=== PATIENT | female | born 1950 | race Two or more races ===

== ENCOUNTER 2025-03-15 11:59 | Inpatient (IN) | payer MEDICARE, OTHER ==
[~2025-03-15] VITALS: Ht 165.1 cm; Wt 68.5 kg
[2025-03-15] MEDS ORDERED: ONDANSETRON HCL/PF 4 MG/2 ML VIAL ONE (12:35)
[2025-03-15] MEDS: IV NS 0.9% 1,000 ML BAG IV ONE ×3 (13:00→16:35)
[2025-03-15] MEDS: ONDANSETRON HCL/PF - ER 4 MG/2 ML VIAL IV ONE (13:01)
[2025-03-15 13:26] LABS: PLATELET COUNT (AUTO) 250 K/uL (150-450); RED BLOOD CELL COUNT(AUTO) 4.39 MIL/uL (4.0-5.2); RED CELL DISTRIBUTION WIDTH 13.5 % (11.5-15.0); WHITE BLOOD COUNT (AUTO) 11.5 K/uL (4.3-11.0)
[2025-03-15 13:34] LABS: CALCIUM, SERUM 8.8 mg/dL (8.5-10.1); CREATININE 0.8 mg/dL (0.6-1.3); SODIUM SERUM 142.0 mmol/L (136-145); UREA NITROGEN, BLOOD 11.0 mg/dL (7-18)
[2025-03-15 13:39] LABS: ASPARTATE AMINOTRANSFERASE 12.0 U/L (15-37); TOTAL PROTEIN, SERUM 7.4 g/dL (6.4-8.2)
[2025-03-15 13:41] LABS: LACTIC ACID 1.7 mmol/L (0.4-2.0)
[2025-03-15] MEDS ORDERED: IV NS 0.9% 250 ML IV ONE (13:44)
[2025-03-15] MEDS ORDERED: IOHEXOL-300 100 ML VIAL IV ONE (13:44)
[2025-03-15] MEDS ORDERED: MINERAL OIL 133 ML (PYXIS) 1 EA ENEMA RC ONE (14:51)
[2025-03-15] MEDS ORDERED: PANTOPRAZOLE 40 MG VIAL ONE (14:51)
[2025-03-15] MEDS ORDERED: KETOROLAC TROMETHAMINE INJ 30 MG/ML VIAL ONE (14:51)
[2025-03-15] MEDS ORDERED: LACTULOSE 10 G/15 ML UDC (PYXIS) PO ONE (15:00)
[2025-03-15] MEDS: PANTOPRAZOLE 40 MG VIAL IV ONE (15:05)
[2025-03-15] MEDS: KETOROLAC TROMETHAMINE 15 MG/ML VIAL IV ONE (15:06)
[2025-03-15] MEDS: MINERAL OIL 133 ML (PYXIS) 1 EA ENEMA RC ONE (15:25)
[2025-03-15] MEDS ORDERED: DOSING PER PHARMACY-CEFEPIME IVPB XX PRN (16:30)
[2025-03-15] MEDS ORDERED: ONDANSETRON HCL/PF 4 MG/2 ML VIAL IVP PRN (16:30)
[2025-03-15] MEDS ORDERED: hydrALAZINE HCL IV 20 MG VIAL IV PRN (16:30)
[2025-03-15] MEDS ORDERED: LORA-258 PO (16:32)
[2025-03-15] MEDS ORDERED: IBUP-23 PO (16:32)
[2025-03-15] MEDS ORDERED: PARO20TA7 PO (16:32)
[2025-03-15] MEDS: PIPERACILLIN /TAZOBACTAM 3.375 G in IV D5W 50 ML IV ONE (16:35)
[2025-03-15] MEDS ORDERED: DIATR MEGLU/DIATRIZOATE SODIUM 120 ML BOTTLE (GASTROGRAPHIN) ONE ×2 (17:26→17:32)
[2025-03-15] MEDS: IV NS 0.9% 1,000 ML IV SCH (17:29)
[2025-03-15] MEDS: DOCUSATE SODIUM LIQ 100 MG/10 ML UDC PO SCH (17:30)
[2025-03-15] MEDS ORDERED: CIPR500T5 PO (19:27)
[2025-03-15] MEDS ORDERED: METR500T PO (19:27)
[2025-03-15] MEDS ORDERED: LORAZEPAM INJ 2 MG/ML VIAL IV PRN (19:30)
[2025-03-15] MEDS: CEFEPIME 2 GM in IV D5W 100 ML IV SCH (19:51)
[2025-03-15 20:00] VITALS: BP 151/65; TEMP 98.1; O2SAT 98
[2025-03-15] MEDS: ACETAMINOPHEN 325 MG TABLET PO PRN (20:04)
[2025-03-15] MEDS: FLUTICASONE PROPIONATE 16 GM BOTTLE NS SCH (20:36)
[2025-03-15] MEDS: HEPARIN SODIUM, PORCINE 5000 UNITS/1 ML VIAL SQ SCH (20:39)
[2025-03-16 06:49] LABS: PLATELET COUNT (AUTO) 194 K/uL (150-450); RED BLOOD CELL COUNT(AUTO) 3.68 MIL/uL (4.0-5.2); RED CELL DISTRIBUTION WIDTH 13.2 % (11.5-15.0); WHITE BLOOD COUNT (AUTO) 8.1 K/uL (4.3-11.0)
[2025-03-16 07:00] VITALS: BP 154/72; TEMP 98.4; O2SAT 95
[2025-03-16 07:53] LABS: ASPARTATE AMINOTRANSFERASE 14.0 U/L (15-37); CALCIUM, SERUM 8.2 mg/dL (8.5-10.1); CREATININE 0.8 mg/dL (0.6-1.3); PHOSPHORUS 3.2 mg/dL (2.5-4.9); SODIUM SERUM 144.0 mmol/L (136-145); TOTAL PROTEIN, SERUM 5.8 g/dL (6.4-8.2); UREA NITROGEN, BLOOD 8.0 mg/dL (7-18)
[2025-03-16] MEDS: POLYETHYLENE GLYCOL 3350 17 GM POWD.PACK PO SCH (08:50)
== END 2025-03-16 11:45 | disposition home health service (06) | DRG 392 ==
LOC: ER 12:11 → MED 16:54
PROVIDERS: ADMIT Internal Medicine; ATTEND Internal Medicine
DX: K57.32 Diverticulitis of large intestine without perforation or abscess without bleeding (principal); K59.00 Constipation, unspecified; K52.9 Noninfective gastroenteritis and colitis, unspecified; K62.89 Other specified diseases of anus and rectum; F32.A Depression, unspecified; F41.9 Anxiety disorder, unspecified; Z90.49 Acquired absence of other specified parts of digestive tract; Z88.4 Allergy status to anesthetic agent; Z88.5 Allergy status to narcotic agent; Z79.899 Other long term (current) drug therapy; F43.20 Adjustment disorder, unspecified
CPT/HCPCS: 36415; 71045-TC; 74018; 80048-TC; 80053-TC; 80076-TC; 83605-TC; 83690-TC; 83735-TC; 84100-TC; 85025-TC; 87040-TC; A4223; G0378; J0692; J1644; J1885; J2405; J2470; J2543; J7030; J7050; J7060; Q9963; Q9967